=== PATIENT | female | born 1975 | race Caucasian/White ===

== ENCOUNTER → 2020-09-07 | Outpatient (CLI) | payer BC ==
[~2020-09-07] MED LIST: ALPR0.25 PO; ASPI-496 PO; ATOR-2 PO; LISI2.5T PO; METO25TA35 PO
== END | disposition home or self-care (01) ==
LOC: CFH 07:01
PROVIDERS: ATTEND Internal Medicine Cardiovascular Disease
DX: I08.1 Rheumatic disorders of both mitral and tricuspid valves (principal); I25.42 Coronary artery dissection
CPT/HCPCS: 93306; 93356